=== PATIENT | female | born 1970 | race African-American/Black ===

== ENCOUNTER 2016-12-29 13:00 | Emergency (ER) | payer OTHER, MEDICAID ==
[2016-12-29 13:15] VITALS: BMI 70.3
[2016-12-29 13:16] VITALS: BP 195/97
--- NOTE | 2016-12-29 13:51 | RAD ---
HISTORY: Cough, chest pain Study: Chest one view Comparison: None Findings: The trachea is midline. The cardiac silhouette is enlarged. No congestive heart failure is noted pe er E. The lungs are clear without focal infiltrate or effusion. The bony thorax is unremarkable. IMPRESSION: 1. Cardiomegaly without congestive heart failure 2. Lungs clear Reported By:
--- NOTE | 2016-12-29 14:33 | DR.GENAD ---
HPI - PCP Primary Care Physician: SEGUNDO SHEARER - Complaint/Symptoms Chief Complaint Doctors Comments: Patient states that two days the she got worse She admits to flu-like symptoms past two days. Chief Complaint:: PATIENT STATED SHE HAS AD A COUGH FOR 3 WEEKS AND ITS WORSE AT NIGHT. Self Treatment fo Chief Complaint: NONE - Source History Provided: Patient - Mode of Arrival Mode of Arrival: Ambulatory - Timing Onset of Chief Complaint: 12/15/16 PMH - PMH Past Medical History: Yes Past Medical History: Diabetes, Hypertension Past Surgical History: Yes Surgical History: Cholecystectomy, Ortho Surgery - Family History History of Family Medical Conditions: Yes Family Medical History: Diabetes Mellitus, Cancer, Coronary Artery Disease, Hypertension - Social History Does patient currently use any type of tobacco product: No Have you used tobacco products in the last 12 months: No Type of Tobacco Use: None Does any household member use tobacco: No Alcohol Use: None Do you use any recreational Drugs:: No Lives With: Family Lives Where: Home - infectious screening In the last 2 months have you had wt loss of >10#?: NO Have you had fever, night sweats or hemotysis?: No Have you traveled outside the country in the last 6 months?: No Isolation: Standard ROS - Review of Systems Constitutional: Chills, Fever, Weakness Eyes: No Symptoms Reported ENTM: No Symptoms Reported Respiratoy: No Symptoms Reported Cardiovascular: No Symptoms Reported Gastrointestinal/Abdominal: No Symptoms Reported Genitourinary: No Symptoms Reported Neurological: No Symptoms Reported Musculoskeletal: No Symptoms Reported Integumentary: No Symptoms Reported Hematologic/Lymphatic: No Symptoms Reported Endocrine: No Symptoms Reported Psychiatric: No Symptoms Reported All Other Systems: Reviewed and Negative PE - Vital Signs Vitals: Pulse Rate 104 Respiratory Rate 16 Blood Pressure [Left Radial 154/87 Artery] Blood Pressure 195/97 O2 Sat by Pulse Oximetry 99 - General Limitations: No Limitations General Appearance: Anxious - Eyes Eye exam: Normal Appearance, PERRL, EOMI - ENT ENT Exam: Normal Exam, Normal Oropharynx External Ear Exam: Normal External Inspection TM/Canal Exam: Bilateral Normal Nose Exam: Normal Nose Exam Mouth Exam: Normal Inspection Throat Exam: Normal Inspection - Neck Neck Exam: Normal Inspection - Chest Chest Inspection: Normal Inspection - Respiratory Respiratory Exam: Normal Lung Sounds Bilat Respiratory Exam: Bilateral Clear to Auscultation - Cardiovascular Cardiovascular Exam: Regular Rate, Normal Rhythm - Abdominal Exam Abdominal Exam: Normal Inspection Abdominal Tenderness: negative: RUQ, RLQ, LUQ, LLQ, Epigastrium, Suprapubic, Diffuse, Mild, Moderate, Severe, Other - Extremities Extremities Exam: Normal Inspection, Full ROM - Back Back Exam: Full ROM - Neurologic Neurological Exam: Alert, Oriented X3, CN II-XII Intact - Psychiatric Psychiatric Exam: Normal Affect, Normal Mood - Skin Skin Exam: Warm, Dry, Intact - Diagnosis Discharge Problem: Influenza - Discharge Plan Condition: Stable Prescriptions: Promethazine W/Codeine [PHENERGAN W/CODEINE 6.25mg/10mg (5mL) *] 10 ml PO Q6H PRN #120 ml PRN Reason: Cough - Follow ups/Referrals Follow ups/Referrals: NFD,None [Primary Care Provider] - 3 days - Instructions
== END 2016-12-29 14:46 | disposition home or self-care (01) ==
LOC: ER 13:29
DX: J11.1 Influenza due to unidentified influenza virus with other respiratory manifestations (principal)
CPT/HCPCS: 71010; 87502; 87503; 99282

== ENCOUNTER 2017-01-25 15:52 | Emergency (ER) | payer OTHER, MEDICAID ==
[2017-01-25 15:57] VITALS: BMI 70.3
--- NOTE | 2017-01-25 16:03 | DR.GENAD ---
HPI - PCP Primary Care Physician: Lilian - HPI Comment HPI Comment: Patient forgot her medicine and has not had them for 3 days.Complaint of constipation. - Complaint/Symptoms Chief Complaint:: pt states she has not had a bowel movement in 3 days and her acid reflux is flared up. Self Treatment fo Chief Complaint: Liquid laxitive - Nurses notes reviewed Nurses Notes Review: Yes - Source History Provided: Patient - Mode of Arrival Mode of Arrival: Wheelchair - Timing Onset of Chief Complaint: 01/22/17 Came on: Gradually - Duration Duration: Constant How lon Duration: Days - Location Location: abdomin - Severity Severity: Mild - Modifying Factors Worsens:: narcotics - Associated Signs and Symptoms Associated Signs and Symptoms: hypertension - Other History Other History: morbid obesity PMH - PMH Past Medical History: Yes Past Medical History: Diabetes, Hypertension Past Medical History Comment: Lupus Past Surgical History: Yes Surgical History: Cholecystectomy, Ortho Surgery - Family History History of Family Medical Conditions: Yes Family Medical History: Diabetes Mellitus, Cancer, Coronary Artery Disease, Hypertension - Social History Does patient currently use any type of tobacco product: No Have you used tobacco products in the last 12 months: No Type of Tobacco Use: None Does any household member use tobacco: No Alcohol Use: None Do you use any recreational Drugs:: No Lives With: Family Lives Where: Home - infectious screening In the last 2 months have you had wt loss of >10#?: NO Have you had fever, night sweats or hemotysis?: No Have you traveled outside the country in the last 6 months?: No Isolation: Standard ROS - Review of Systems Constitutional: No Symptoms Reported Eyes: No Symptoms Reported ENTM: No Symptoms Reported Respiratoy: No Symptoms Reported Cardiovascular: No Symptoms Reported Gastrointestinal/Abdominal: Constipation Genitourinary: No Symptoms Reported Neurological: No Symptoms Reported Musculoskeletal: No Symptoms Reported Integumentary: No Symptoms Reported Hematologic/Lymphatic: No Symptoms Reported Endocrine: No Symptoms Reported Psychiatric: Depression PE - Vital Signs Vitals: Temperature 98.5 F Pulse Rate 100 Respiratory Rate 18 Blood Pressure [Left Radial 220/96 Artery] Blood Pressure 225/106 O2 Sat by Pulse Oximetry 97 - General Limitations: No Limitations General Appearance: Alert, In No Apparent Distress - Head Head Exam: Normal Inspection - Eyes Eye exam: Normal Appearance, EOMI. negative: Scleral Icterus, Conjunctival Injection - ENT ENT Exam: Normal Exam External Ear Exam: Normal External Inspection - Neck Neck Exam: Normal Inspection - Chest Chest Inspection: Normal Inspection - Respiratory Respiratory Exam: Normal Lung Sounds Bilat. negative: Accessory Muscle Use, Respiratory Distress Respiratory Exam: Bilateral Clear to Auscultation - Cardiovascular Cardiovascular Exam: Regular Rate - Abdominal Exam Abdominal Exam: Normal Inspection, Normal Bowel Sounds, Soft. negative: Tenderness, Guarding Abdominal Tenderness: Epigastrium - Extremities Extremities Exam: Normal Inspection, Full ROM, Tenderness - Back Back Exam: Normal Inspection - Neurologic Neurological Exam: Alert, Oriented X3, CN II-XII Intact - Psychiatric Psychiatric Exam: Depressed - Skin Skin Exam: Intact, Normal Color Course - Treatment Treatment: FSBS in 170s - Diagnosis Discharge Problem: Hypertension Qualifiers: Hypertension type: essential hypertension Qualified Code(s): I10 - Essential ( primary) hypertension Constipation Qualifiers: Constipation type: unspecified constipation type Qualified Code(s): K59.00 - Constipation, unspecified - Discharge Plan Condition: Stable Prescriptions: Polyethylene Glycol Pwd Btl [MIRALAX. (255 GM BOTTLE) *] 17 gm PO DAILY PRN # 255 gm PRN Reason: Constipation - Follow ups/Referrals Follow ups/Referrals: SABRINA SHEARER [Primary Care Provider] - 3 days - Instructions
[2017-01-25] MEDS ORDERED: CATAPRES TAB 0.2 MG PO ONE (16:20)
[2017-01-25] MEDS ORDERED: CATAPRES TAB 0.3 MG ONE (16:31)
[2017-01-25] MEDS ORDERED: ZESTRIL TAB 40 MG PO ONE (16:59)
[2017-01-25] MEDS ORDERED: TOPROL XL PO SCH (17:00)
[2017-01-25] MEDS ORDERED: ZESTRIL TAB 40 MG ONE (17:08)
[2017-01-25] MEDS ORDERED: TOPROL XL PO ONE (17:08)
[2017-01-25 17:52] VITALS: BP 136/78
== END 2017-01-25 17:55 | disposition home or self-care (01) ==
LOC: ER 16:22
DX: K59.09 Other constipation (principal); I10 Essential (primary) hypertension
CPT/HCPCS: 99282

== ENCOUNTER 2021-01-27 11:09 | Observation (INO) ==
[2021-01-27] MEDS ORDERED: HumuLIN R SUBCUT PRN (14:15)
[2021-01-27 14:44] VITALS: BMI 71.0
[2021-01-27 14:51] LABS: BASOPHILS % (AUTO) 0.2 % (0.2-1.0); EOSINOPHILS # (AUTO) 0.3 x10^3/uL (0.0-0.2); EOSINOPHILS % (AUTO) 3.8 % (0.9-2.9); HEMATOCRIT 32.8 % (36.0-47.0); HEMOGLOBIN 10.5 g/dL (12.0-16.0); LYMPHOCYTES # (AUTO) 1.9 X10^3/uL (1.3-2.9); LYMPHOCYTES % (AUTO) 25.6 % (21.0-51.0); MEAN CORPUSCULAR HEMOGLOBIN 24.9 pg (27.0-34.0); MEAN CORPUSCULAR HGB CONC 32.1 g/dL (33.0-35.0); MEAN CORPUSCULAR VOLUME 77.7 fL (80.0-100.0); MEAN PLATELET VOLUME 7.9 fL (7.4-11.0); MONOCYTES # (AUTO) 0.3 x10^3/uL (0.3-0.8); NEUTROPHILS % (AUTO) 66.4 % (42.0-75.0); PLATELET COUNT 320 X10^3/uL (150.0-450.0); RED BLOOD COUNT 4.22 X10^6/uL (3.5-5.4); RED CELL DISTRIBUTION WIDTH 17.7 % (11.6-16.5); WHITE BLOOD COUNT 7.6 X10^3/uL (3.6-10.0)
[2021-01-27] MEDS ORDERED: NS 1000 ML 1,000 ML IV SCH (15:00)
--- NOTE | 2021-01-27 15:00 | RAD ---
HISTORYCHEST PAINSTUDYCHEST x-ray, 1 VIEWCOMPARISONNoneFINDINGSPossible cardiomegaly. No pneumothorax, focal infiltrate, or pleural effusion is seen. No pulmonary edema is seen.IMPRESSIONPossible cardiomegaly without suggestion of CHF or pulmonary edema.Electronically signed by: Keshawn Booth (January 27, 2021 14:58:35)
[2021-01-27 15:19] LABS: ALANINE AMINOTRANSFERASE 18 Units/L (12-78); ALBUMIN 2.3 g/dL (3.4-5.0); ALKALINE PHOSPHATASE 68 Units/L (46-116); ASPARTATE AMINO TRANSFERASE 15 Units/L (15-37); BLOOD UREA NITROGEN 33 mg/dL (7-18); CALCIUM 8.8 mg/dL (8.5-10.1); CARBON DIOXIDE 22.2 mmol/L (21-32); CHLORIDE 106 mmol/L (98-107); CKMB % 0.9 % (<4); COR CA(FOR HYPOALB) 10.2 mg/dL (8.5-10.1); COR NA(FOR HYPERGLY) 140 mmol/L (136-145); CREATINE KINASE 301 Units/L (26-192); CREATINE KINASE MB 2.6 ng/mL (0-4.0); CREATININE 1.55 mg/dL (0.55-1.02); SODIUM 138 mmol/L (136-145); TOTAL PROTEIN 7.4 g/dL (6.4-8.2); TROPONIN I < 0.02 ng/mL (0-1.5); eGFR NON BLACK RACES 38 (>60)
[2021-01-27] MEDS ORDERED: SNACK - Diabetic Appropriate PO SCH (20:00)
[2021-01-27 22:02] LABS: CKMB % 0.7 % (<4); CREATINE KINASE 299 Units/L (26-192); CREATINE KINASE MB 2.2 ng/mL (0-4.0); TROPONIN I < 0.02 ng/mL (0-1.5)
[2021-01-28 02:34] LABS: CKMB % 0.8 % (<4); CREATINE KINASE 267 Units/L (26-192); TROPONIN I < 0.02 ng/mL (0-1.5)
[2021-01-28 05:28] LABS: BASOPHILS # (AUTO) 0.1 X10^3/uL (0.0-0.1); BASOPHILS % (AUTO) 0.7 % (0.2-1.0); EOSINOPHILS # (AUTO) 0.3 x10^3/uL (0.0-0.2); EOSINOPHILS % (AUTO) 4.3 % (0.9-2.9); HEMATOCRIT 30.1 % (36.0-47.0); HEMOGLOBIN 9.9 g/dL (12.0-16.0); LYMPHOCYTES # (AUTO) 1.8 X10^3/uL (1.3-2.9); LYMPHOCYTES % (AUTO) 24.9 % (21.0-51.0); MEAN CORPUSCULAR HEMOGLOBIN 25.2 pg (27.0-34.0); MEAN CORPUSCULAR HGB CONC 32.9 g/dL (33.0-35.0); MEAN CORPUSCULAR VOLUME 76.8 fL (80.0-100.0); MEAN PLATELET VOLUME 8.6 fL (7.4-11.0); MONOCYTES # (AUTO) 0.5 x10^3/uL (0.3-0.8); MONOCYTES % (AUTO) 6.2 % (0.0-13.0); NEUTROPHILS # (AUTO) 4.7 x10^3/uL (2.2-4.8); NEUTROPHILS % (AUTO) 63.9 % (42.0-75.0); PLATELET COUNT 333 X10^3/uL (150.0-450.0); RED BLOOD COUNT 3.91 X10^6/uL (3.5-5.4); RED CELL DISTRIBUTION WIDTH 17.5 % (11.6-16.5); WHITE BLOOD COUNT 7.3 X10^3/uL (3.6-10.0)
[2021-01-28 05:44] LABS: CALCIUM 8.5 mg/dL (8.5-10.1); CARBON DIOXIDE 23.9 mmol/L (21-32); CHOL/HDL RATIO 3.8 (0.0-5.0); COR CA(FOR HYPOALB) 10.1 mg/dL (8.5-10.1); CREATININE 1.66 mg/dL (0.55-1.02); TOTAL PROTEIN 6.6 g/dL (6.4-8.2)
[2021-01-28] MEDS ORDERED: LOVENOX INJ 40 MG SYR SC SCH ×2 (10:00→11:00)
--- NOTE | 2021-01-28 10:03 | DR.H&P ---
H&P - History & Physical for Day of: H&P Date: 01/27/21 - Chief Complaint Chief Complaint: CHEST PAIN - History of Present Illness History of Present Illness: PT IS 51WF DIRECT ADMIT WITH CO CHEST PAIN, SUBSTERANAL. PT HAS PMH OF RENAL DISEASE, HTN, DM, MO, OA. PT HAS LEFT BKA. PT DENIES ANY FEVER, CCC. PT REPORTS SHE HAD COVID 4-5 MOS AGO AND HAS HAD BOTH MODERNA VACCINES. PT ADMITTED FOR EVALUATION AND TREATMENT OF CHEST PAIN AND RO NH. PLAN TO TRANSFER FOR CARDIAC CATH. - Past Medical History Past Medical History: Arthritis, Diabetes, Hypertension, Renal Disease - Past Surgical History Surgical History: Cholecystectomy, Ortho Surgery, Tonsillectomy Additional Surgical History: TUBAL LIGATION. LBKA - Family History Family Medical History: Diabetes Mellitus, Cancer, Coronary Artery Disease, Hypertension - Social History Does patient currently use any type of tobacco product: No Have you used tobacco products in the last 12 months: No Type of Tobacco Use: None Does any household member use tobacco: No Alcohol Use: None Drug Use: None Risks, benefits, and alternatives of opioids discussed: No Prescription drug monitoring program results: PDMP reviewed and no concerns identified - Medications Home Medications: No Known Drug Allergies Allergy (Verified 01/27/21 11:02) CONTINUE taking the following medications allopurinol 100 mg PO DAILY 01/27/21 [History] aspirin 81 mg PO DAILY 01/27/21 [History] urfdstrtka-oltjistahfcmi-dwew 1 tab PO Q6H PRN 01/27/21 [History] cyclobenzaprine 10 mg PO HS PRN 01/27/21 [History] diltiazem HCl [DILT-XR] 120 mg PO BID 01/27/21 [History] ergocalciferol (vitamin D2) [Vitamin D2] 1,250 mcg PO WEEKLY 01/27/21 [History] famotidine 40 mg PO HS 01/27/21 [History] furosemide 20 mg PO DAILY PRN MDD 2X A WEEK 01/27/21 [History] glyburide 10 mg PO BID 01/27/21 [History] hydralazine 50 mg PO TID 01/27/21 [History] hydrochlorothiazide 50 mg PO DAILY 01/27/21 [History] insulin degludec [Tresiba FlexTouch U-200] 100 unit SUBCUT BID 01/27/21 [History] ipratropium-albuterol 3 ml INHALATION QID PRN 01/27/21 [History] labetalol 100 mg PO TID 01/27/21 [History] lisinopril 40 mg PO DAILY 01/27/21 [History] losartan 50 mg PO HS 01/27/21 [History] losartan 100 mg PO DAILY 01/27/21 [History] lubiprostone [Amitiza] 24 mcg PO BID 01/27/21 [History] metformin 850 mg PO TID 01/27/21 [History] metoprolol succinate 50 mg PO BID 01/27/21 [History] nitroglycerin 0.4 mg SUBLINGUAL Q5M PRN 01/27/21 [History] pantoprazole 40 mg PO DAILY 01/27/21 [History] simvastatin 40 mg PO HS 01/27/21 [History] sitagliptin [Januvia] 100 mg PO DAILY 01/27/21 [History] venlafaxine 150 mg PO DAILY 01/27/21 [History] - Review of Systems Constitutional: Malaise Eyes: No Symptoms Reported ENT: No Symptoms Reported Respiratory: No Symptoms Reported, SOB with Excertion Cardiovascular: Chest Pain, Edema Gastrointestinal: No Symptoms Reported Genitourinary: No Symptoms Reported Musculoskeletal: No Symptoms Reported Skin: No Symptoms Reported Neurological: No Symptoms Reported - Physical Exam Vital Signs: Temperature 98.3 F Pulse Rate [Left Brachial] 64 Respiratory Rate 20 Blood Pressure [Left Arm] 170/77 Blood Pressure [Left Radial 136/78 Artery] Blood Pressure 176/80 O2 Sat by Pulse Oximetry 98 Oriented: Normal, Person Ear: Normal Nose: Normal Throat: Normal Respiratory: RLL Diminished, LLL Diminished Cardiovascular: Edema : Normal Auscultation: Bowel Sounds: Normal Palpation: Normal Tenderness: Normal Skin: Decreased Turgur Musculoskeletal: Deformity (LBKA) Mood Description: Calm Speech Pattern: Clear, Appropriate - Assessment/Plan (1) Chest pain Status: Acute Plan: ADMIT, SERIAL CE AND EKG. CARDIAC MONITORING AND BP CONTROL. BS CONTROL, VERIFY HOME MEDICATION. PLAN TO TRANSFER FOR CARDIAC CATH (2) Diabetes Status: Acute (3) Renal disease Status: Acute (4) Hypertension Qualifiers: Hypertension type: essential hypertension Qualified Code(s): I10 - Essential (primary) hypertension Status: Acute - Allergies Allergies/Adverse Reactions: Allergies Allergy/AdvReac Type Severity Reaction Status Date / Time No Known Drug Allergies Allergy Verified 01/27/21 11:02
[2021-01-28] MEDS ORDERED: LOVENOX INJ 150 MG SYR SC SCH (11:00)
[2021-01-28 12:30] VITALS: BP 133/70
--- NOTE | 2021-01-28 14:40 | RAD ---
HISTORYCentral line placementSTUDYChest AP [id number] is a new right IJ line with its tip in the expected positio n of superior vena cava. The heart is enlarged. No congestive heart failure is noted. No acute alveol ar infiltrates or pleural effusions are identified. Bony thorax is unremarkable.IMPRESSIONRight IJ li ne tip superior vena cavaMild cardiomegaly without congestive heart failureNo infiltratesElectronical ly signed by: CHRISTI CHAPMAN (January 28, 2021 14:38:43)
--- NOTE | 2021-01-28 16:37 | DR.UPDATE ---
H&P Update History and Physical Update: History and Physical reviewed and patient examined. Changes noted: NO Yes with the following:will place right IJTLC H&P Reviewed: Yes Patient was examined?: Yes Procedures (ALL) - Central Line Placement PCM.CLCO: written consent Time out performed: Yes Patient placed pm monitor/pulse ox: Yes prep: mask, gown, gloves, other Centrial line prep: chlorhexidine scrub, sterile drapes applied Local anesthsia used: lidocane 1% Ultrasound used for placement: Yes (r IJ id'd via u/s and cannulation visualized) Central line lumen ininserted: triple Post procedure: sutured in place, good blood return, all ports aspirated, flushed,capped, sterile dressing applied Post procedure xray: tip oc catheter in good position (tip in svc), no pneumothorax seen Patient tolerated procedure: Yes Complications: none
== END 2021-01-28 15:20 | disposition home or self-care (01) ==
LOC: MED/SURG
PROVIDERS: ADMIT Internal Medicine; ATTEND Internal Medicine
DX: R07.89 Other chest pain; Z20.822 Contact with and (suspected) exposure to COVID-19; I10 Essential (primary) hypertension; Z86.16 Personal history of COVID-19; E11.65 Type 2 diabetes mellitus with hyperglycemia; I87.2 Venous insufficiency (chronic) (peripheral); R94.31 Abnormal electrocardiogram [ECG] [EKG]